=== PATIENT | female | born 1990 | race Hispanic/Latino ===

== ENCOUNTER → 2018-05-15 | Outpatient (CLI) | payer BC, OTHER ==
[~2018-05-15] MED LIST: Acetaminophen PO; BUPR100T13 PO; BUSP7.5T7 PO; DOCU-275 PO; FAMO20TA8 PO; FERS325 PO; IBUP-2070 PO; METO10TA3 PO; MVIT PO; POLY17PO4 PO; PROT946L PO; Sennosides PO; TRAM50TA4 PO; TRAZ-185 PO
== END | disposition home or self-care (01) ==
LOC: RAH 14:04
PROVIDERS: ATTEND Internal Medicine
DX: K59.00 Constipation, unspecified (principal)
CPT/HCPCS: 74018

== ENCOUNTER 2018-07-21 13:18 | Observation (INO) | payer OTHER ==
[~2018-07-21] VITALS: Ht 152.4 cm; Wt 115.7 kg
[2018-07-21] MEDS ORDERED: SODIUM CHLORIDE 0.9% 1000ML 1,000 ML IV ONE (14:25)
[2018-07-21 14:32] LABS: BASOPHILS % (AUTO) 0.7 % (0.0-5.0); EOSINOPHILS % (AUTO) 0.6 % (0.0-8.0); HEMATOCRIT 35.2 % (36-48); LYMPHOCYTES % (AUTO) 18.2 % (21.0-51.0); MEAN CORPUSCULAR HEMOGLOBIN 24.1 pg (27.0-33.0); MEAN CORPUSCULAR HGB CONC 31.7 g/dL (32.0-36.0); NEUTROPHILS % (AUTO) 75.5 % (40.0-77.0); PLATELET COUNT (AUTO) 392 K/uL (130-400); RED BLOOD CELL COUNT(AUTO) 4.64 MIL/uL (4.00-5.50); RED CELL DISTRIBUTION WIDTH 17.7 % (11.0-15.5); WHITE BLOOD COUNT (AUTO) 10.9 K/uL (4.8-10.8)
[2018-07-21] MEDS ORDERED: ONDANSETRON HCL 4 MG/2 ML VIAL ONE (14:40)
[2018-07-21] MEDS ORDERED: MORPHINE SULFATE 4 MG/1ML SYG ONE ×2 (14:40→18:02)
[2018-07-21 14:52] LABS: CREATININE 0.8 mg/dL (0.5-1.5)
[2018-07-21 14:56] LABS: ALBUMIN 3.5 g/dL (3.5-5.0); BILIRUBIN,TOTAL 0.3 mg/dL (0.2-1.0); TOTAL PROTEIN, SERUM 8.1 g/dL (6.0-8.3)
[2018-07-21 15:56] LABS: INR 0.99 (0.85-1.15); PARTIAL THROMBOPLASTIN TIME 29.4 SEC (26.3-35.5); PROTHROMBIN TIME 10.4 SEC (9.6-11.6)
[2018-07-21 16:45] VITALS: BP 132/90
[2018-07-21] MEDS ORDERED: LIDOCAINE HCL-MPF 1% 2ML VIAL IVP PRN ×2 (17:45→18:30)
[2018-07-21] MEDS ORDERED: LACTULOSE 20 GM/30 ML UDCUP PO PRN (17:45)
[2018-07-21] MEDS ORDERED: POTASSIUM CHLORIDE 10MEQ/100ML 100 ML IV PRN (17:45)
[2018-07-21] MEDS ORDERED: ONDANSETRON HCL 4 MG/2 ML VIAL IVP PRN (17:45)
[2018-07-21] MEDS ORDERED: MAG HYDROX/AL HYDROX/SIMETH ES 30 ML SUSP UDCUP PO PRN (17:45)
[2018-07-21] MEDS ORDERED: MORPHINE SULFATE 4 MG/1ML SYG IV PRN (17:45)
[2018-07-21] MEDS ORDERED: ACETAMINOPHEN EXTRA STRENGTH 500 MG TABLET PO PRN ×2 (17:45)
[2018-07-21] MEDS ORDERED: MELO-106 PO (17:59)
[2018-07-21] MEDS ORDERED: PANT40TA PO (17:59)
[2018-07-21] MEDS ORDERED: DOCU100C33 PO (17:59)
[2018-07-21] MEDS ORDERED: POTASSIUM CHLORIDE 20 MEQ ERTAB PO PRN (18:30)
[2018-07-21] MEDS ORDERED: POTASSIUM CHLORIDE 10% ELIXIR 20 MEQ/15 ML UDCUP PO PRN (18:30)
[2018-07-21] MEDS ORDERED: POTASSIUM CHLORIDE 20MEQ/100ML 100 ML IV PRN (18:30)
[2018-07-21] MEDS ORDERED: MAGNESIUM HYDROXIDE 30 ML/UDCUP PO SCH (18:30)
[2018-07-21 19:14] VITALS: BP 109/53
[2018-07-21] MEDS ORDERED: DOCUSATE SODIUM 100 MG CAP PO SCH (21:00)
[2018-07-21] MEDS ORDERED: TRAZODONE HCL 50 MG TAB PO PRN (21:00)
[2018-07-21] MEDS: DOCUSATE SODIUM 100 MG CAP PO SCH (21:19)
[2018-07-21 23:46] VITALS: BP 98/50
[2018-07-22] MEDS: SODIUM CHLORIDE 0.9% 1000ML 1,000 ML IV SCH ×2 (00:34→09:43)
[2018-07-22 03:11] VITALS: BP 97/56
[2018-07-22 06:19] LABS: HEMATOCRIT 34.7 % (36-48); MEAN CORPUSCULAR HEMOGLOBIN 24.2 pg (27.0-33.0); MEAN CORPUSCULAR HGB CONC 31.4 g/dL (32.0-36.0); PLATELET COUNT (AUTO) 296 K/uL (130-400); RED BLOOD CELL COUNT(AUTO) 4.51 MIL/uL (4.00-5.50); RED CELL DISTRIBUTION WIDTH 17.2 % (11.0-15.5); WHITE BLOOD COUNT (AUTO) 7.6 K/uL (4.8-10.8)
[2018-07-22 06:27] LABS: CREATININE 0.7 mg/dL (0.5-1.5)
[2018-07-22 07:41] VITALS: BP 118/77
[2018-07-22] MEDS: METOCLOPRAMIDE 10 MG TABLET PO SCH ×2 (07:59→12:15)
[2018-07-22] MEDS ORDERED: MELOXICAM 7.5 MG TABLET PO SCH (09:00)
[2018-07-22] MEDS ORDERED: PANTOPRAZOLE SODIUM 40 MG TABLET.DR PO SCH (09:00)
[2018-07-22] MEDS ORDERED: ENOXAPARIN SODIUM 40 MG/0.4 ML SYRINGE SQ SCH (09:00)
[2018-07-22] MEDS: DOCUSATE SODIUM 100 MG CAP PO SCH (09:39)
--- NOTE | 2018-07-22 10:05 | NUR ---
PT ACTIVITY PT AMBULATING IN HALLWAY AND TOLERATING WELL. NO COMPLAINTS AT THIS TIME.
[2018-07-22] MEDS ORDERED: TRAM1TAB PO (10:23)
[2018-07-22 11:44] VITALS: BP 117/70
--- NOTE | 2018-07-22 12:10 | NUR ---
PT REPORTED HAVING 2 BM'S. TOLERATING REGULAR DIET. NO COMPLAINTS AT THIS TIME.
--- NOTE | 2018-07-22 15:05 | NUR ---
DISCHARGE PT LEFT UNIT VIA WHEELCHAIR, ACCOMPANIED BY FAMILY. DENIED PAIN AND HAD NO COMPLAINTS. TRANSPORTED BY PERSONAL VEHICLE.
== END 2018-07-22 15:05 | disposition home or self-care (01) ==
LOC: EDH 13:18 → WSH 13:20
PROVIDERS: ADMIT Internal Medicine; ATTEND Internal Medicine
DX: K43.9 Ventral hernia without obstruction or gangrene (principal); E66.01 Morbid (severe) obesity due to excess calories; F32.1 Major depressive disorder, single episode, moderate; K21.9 Gastro-esophageal reflux disease without esophagitis; K27.9 Peptic ulcer, site unspecified, unspecified as acute or chronic, without hemorrhage or perforation; K31.84 Gastroparesis; G47.00 Insomnia, unspecified; K82.4 Cholesterolosis of gallbladder; L40.9 Psoriasis, unspecified; K59.00 Constipation, unspecified; K63.2 Fistula of intestine; T40.605A Adverse effect of unspecified narcotics, initial encounter; Y92.89 Other specified places as the place of occurrence of the external cause; Z87.11 Personal history of peptic ulcer disease; Z68.42 Body mass index [BMI] 45.0-49.9, adult; Z82.0 Family history of epilepsy and other diseases of the nervous system; Z82.49 Family history of ischemic heart disease and other diseases of the circulatory system; Z82.5 Family history of asthma and other chronic lower respiratory diseases; Z83.3 Family history of diabetes mellitus; Z90.49 Acquired absence of other specified parts of digestive tract
CPT/HCPCS: 36415 ×2; 74018; 74177; 80048; 80053; 80061; 82150; 83690; 84702; 85025; 85027; 85610; 85730; 96372; 96374; 99284; G0378 ×26; J1650; J2270 ×2; J2405 ×2; J7030 ×2

== ENCOUNTER 2019-04-13 07:06 | Emergency (ER) | payer OTHER ==
[~2019-04-13 07:06] MED LIST changes: -Acetaminophen PO; -BUPR100T13 PO; -BUSP7.5T7 PO; -DOCU-275 PO; +DOCU100C33 PO; -FAMO20TA8 PO; -FERS325 PO; -IBUP-2070 PO; +MELO-106 PO; -MVIT PO; +PANT40TA PO; -POLY17PO4 PO; -PROT946L PO; -Sennosides PO; +TRAM1TAB PO; -TRAM50TA4 PO
[2019-04-13] MEDS ORDERED: LIDOCAINE HCL 2% VISCOUS 15 ML UDCUP ONE (07:52)
[2019-04-13] MEDS ORDERED: ONDANSETRON ODT 4 MG TAB ONE (07:53)
[2019-04-13] MEDS ORDERED: MAG HYDROX/AL HYDROX/SIMETH ES 30 ML SUSP UDCUP ONE (07:53)
[2019-04-13 07:57] LABS: BASOPHILS % (AUTO) 1.2 % (0.0-5.0); EOSINOPHILS % (AUTO) 0.7 % (0.0-8.0); HEMATOCRIT 35.2 % (36-48); LYMPHOCYTES % (AUTO) 20.6 % (21.0-51.0); MEAN CORPUSCULAR HEMOGLOBIN 25.6 pg (27.0-33.0); MEAN CORPUSCULAR HGB CONC 32.6 g/dL (32.0-36.0); MEAN CORPUSCULAR VOLUME 78.5 fL (79-99); MONOCYTES % (AUTO) 3.4 % (3.0-13.0); NEUTROPHILS % (AUTO) 74.1 % (40.0-77.0); NUCLEATED RED BLOOD CELLS 0.1 % (0.0-0.19); PLATELET COUNT (AUTO) 289 K/uL (130-400); RED BLOOD CELL COUNT(AUTO) 4.49 MIL/uL (4.00-5.50); RED CELL DISTRIBUTION WIDTH 16.8 % (11.0-15.5)
[2019-04-13 08:06] LABS: CREATININE 0.8 mg/dL (0.5-1.5); POTASSIUM 5.9 mmol/L (3.5-5.1)
[2019-04-13 08:11] LABS: ALBUMIN 2.8 g/dL (3.5-5.0); BILIRUBIN,TOTAL 0.6 mg/dL (0.2-1.0); TOTAL PROTEIN, SERUM 7.8 g/dL (6.0-8.3)
== END 2019-04-13 10:22 | disposition home or self-care (01) ==
LOC: EDH 07:06
DX: R07.89 Other chest pain (principal); R11.0 Nausea; F41.9 Anxiety disorder, unspecified; Z91.040 Latex allergy status; Z88.8 Allergy status to other drugs, medicaments and biological substances; Z79.899 Other long term (current) drug therapy
CPT/HCPCS: 36415; 71046; 80053; 81025; 84484; 85025; 93005

== ENCOUNTER → 2022-08-06 | Outpatient (CLI) | payer BC ==
[~2022-08-06] MED LIST changes: -TRAM1TAB PO; +TRAM1TAB2 PO
== END | disposition home or self-care (01) ==
LOC: RAH 09:28
PROVIDERS: ATTEND Internal Medicine
DX: K43.9 Ventral hernia without obstruction or gangrene (principal); K46.9 Unspecified abdominal hernia without obstruction or gangrene
CPT/HCPCS: 76705